=== PATIENT | male | born 1955 | race African-American/Black ===

== ENCOUNTER → 2017-08-11 | Emergency (ER) | payer OTHER ==
[~2017-08-11] VITALS: Ht 180.3 cm; Wt 72.6 kg
[~2017-08-11] MED LIST: TYLENOL325 MG ORAL
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
--- NOTE | 2017-08-11 15:18 | Diagnostic Imaging Report ---
Indication: Pain Technique: XRAY Elbow Min 3v R Comparison: None Findings: There is no evidence of acute fracture or dislocation. Anatomic alignment and joint spaces are preserved. No elbow joint effusion is seen. No radiopaque foreign body identified. Question very mild soft tissue prominence in the region of the olecranon bursa. Impression: No evidence of acute fracture or dislocation. No elbow joint effusion. Questionable very mild soft tissue prominence overlying the olecranon may suggest the olecranon bursitis. Correlate clinically.
--- NOTE | 2017-08-11 15:21 | Diagnostic Imaging Report ---
Indication: Pain Technique: XRAY Hand Complete R Comparison: None Findings: There is no acute fracture or dislocation. Anatomic alignment is preserved. There is very mild degenerative change at the basal joint. No focal soft tissue abnormality is appreciated. No radiopaque foreign body seen. Impression: No evidence of acute fracture or dislocation.
[2017-08-11 16:00] VITALS: BP 147/82
== END | disposition home or self-care (01) ==
LOC: EDUNIT# 14:12 → EDBD 14:16 → EMR 14:51
DX: S60.221A Contusion of right hand, initial encounter (principal); S50.01XA Contusion of right elbow, initial encounter; W22.8XXA Striking against or struck by other objects, initial encounter; Y92.811 Bus as the place of occurrence of the external cause; M70.21 Olecranon bursitis, right elbow; I10 Essential (primary) hypertension; Z86.69 Personal history of other diseases of the nervous system and sense organs; Z88.8 Allergy status to other drugs, medicaments and biological substances
CPT/HCPCS: 99284